=== PATIENT | male | born 1975 | race Caucasian/White ===

== ENCOUNTER → 2017-05-23 | Outpatient (CLI) | payer BC ==
[~2017-05-23] MED LIST: ACET500T68 PO; CYCL10TA29 PO; ESCI10TA8 PO; ESCI20TA38 PO; FLUO20DR3 OT; HYDR-4309 PO; IBUP600T22 PO; LORA10CA3 PO; MOMR ENA; MULT1CAP59 PO; OXCA300O PO; OXCA300T44 PO; TEST100V5 IM; TRAM-420 PO; VENL150C3 PO; VENL75CA4 PO; VENL75CA58 PO
--- NOTE | 2017-05-23 13:08 | RADIOLOGY IMAGING REPORT ---
[place] [facility] [place] NAME: Rohan Arana : 1975 MR: [id number] V: [id number] EXAM DATE: ORDERING PHYSICIAN: TERRELL LÓPEZ TECHNOLOGIST: [place] [facility] [place]: Rohan Arana : 1975 Visit/Account:[id number] Date of Sevice: 05/23/2017 EXAMINATION: CT of the Paranasal Sinuses HISTORY: Chronic sinus symptoms, pain TECHNIQUE: CT was performed through the paranasal sinuses without intravenous contrast administratio n. Coronal and sagittal reformatted images were generated. One of the following dose optimization techniques was utilized in the performance of this exam: autom ated exposure control; adjustment of the mA and/or kV according to patient size; or use of iterative reconstruction technique. Specific details can be referenced in the facility's radiology CT exam ope rational policy. COMPARISON: None. FINDINGS: Clear mastoid air cells and middle ear cavities. Clear paranasal sinuses. No nasal cavity polyp. 3 mm leftward nasal septum deviation. Patent infundibula. Right teddy bullosa. 4 mm lucency within the frontal bone in the anterior wall of the frontal sinus on the right, axial im age 62. Normal temporomandibular joints. The visible extracranial and intracranial structures are normal. IMPRESSION: 1. Clear sinuses. 2. 4 mm osseous lucency within the anterior wall of the right frontal sinus of indeterminate etiology /significance. This may represent the residua of distant sinusitis. An acute erosion related to acute osteomyelitis is felt less likely. Malignant erosion is also felt less likely. Follow-up CT could be utilized as needed to document stability. 3. 3 mm leftward nasal septum deviation. 4. Right teddy bullosa. Report Dictated By: Eric Romeo MD at 05/23/2017 12:54 PM Report E-Signed By: Eric Romeo MD at 05/23/2017 1:04 PM WSN:[email or web address]
== END ==
LOC: CT 00:50
PROVIDERS: ATTEND Otolaryngology
DX: J34.2 Deviated nasal septum (principal); J34.9 Unspecified disorder of nose and nasal sinuses
CPT/HCPCS: 70486

== ENCOUNTER 2017-06-19 02:43 | Day surgery (SDC) | payer BC ==
[~2017-06-19] VITALS: Ht 172.7 cm; Wt 78.9 kg
[2017-06-19] MEDS ORDERED: ROCURONIUM BROM 10 MG/ML 5 ML ONE (02:44)
[2017-06-19] MEDS ORDERED: NORMOSOL R SOLN(*) 1000 ML BAG 1,000 ML IV PRN (08:30)
[2017-06-19] MEDS ORDERED: LIDOCAINE/SOD BICARB 8.4% SYR ID ONE (08:30)
[2017-06-19] MEDS: FAMOTIDINE 20 MG TAB PO ONE ×2 (08:30→10:00)
[2017-06-19] MEDS ORDERED: MIDAZOLAM 2 MG/2 ML VIAL IVP ONE (08:35)
[2017-06-19] MEDS ORDERED: ONDANSETRON 4 MG/2 ML VIAL ONE (09:38)
[2017-06-19] MEDS ORDERED: DEXAMETHASONE SOD 4 MG/ML VIAL ONE (09:38)
[2017-06-19] MEDS ORDERED: METOCLOPRAMIDE 10 MG/2 ML SDV ONE (09:38)
[2017-06-19] MEDS ORDERED: PROPOFOL EMUL(*) 10MG/ML 20 ML 20 ML ONE (09:38)
[2017-06-19] MEDS ORDERED: LIDOCAINE MPF 1% 5 ML VIAL ONE (09:38)
[2017-06-19] MEDS ORDERED: fentaNYL CITR 100 MCG/2 ML AMP ONE ×2 (09:48→11:49)
[2017-06-19 10:03] LABS: PLATELET COUNT, AUTOMATED 294 K/uL (150-450)
[2017-06-19 10:05] VITALS: BP 148/102
[2017-06-19] MEDS ORDERED: ceFAZolin(*) 2GM/D5W 50ML 50 ML IVPB ONE (10:15)
[2017-06-19] MEDS ORDERED: LIDO/EPI 1% MDV 1:100,000 20ML INFIL ONE (10:17)
[2017-06-19] MEDS ORDERED: BACITRACIN OINT 15 GM TUBE TP ONE (10:17)
[2017-06-19] MEDS ORDERED: OXYMETAZOLINE SPRAY 15 ML BTL ONE (10:17)
[2017-06-19] MEDS ORDERED: FAMOTIDINE 20 MG/50 ML PREMIX IVPB ONE (10:20)
[2017-06-19] MEDS ORDERED: SUGAMMADEX SOD 200 MG/2 ML SDV ONE (11:10)
[2017-06-19] MEDS ORDERED: CEFU500T10 PO (12:06)
[2017-06-19] MEDS ORDERED: HYDR-4309 PO (12:06)
[2017-06-19] MEDS ORDERED: APAP/HYDROCODONE 325/5 TAB ONE (12:34)
[2017-06-19 12:44] VITALS: BP 142/90
[2017-06-19 13:16] VITALS: BP 138/97
[2017-06-19 13:18] VITALS: BP 135/84
[2017-06-19 13:22] VITALS: BP 143/99
--- NOTE | 2017-06-20 10:40 | OPERATIVE REPORT 1 ---
EVENT DATE: June 19, 2017 SURGEON: Chance Sunshine MD ANESTHESIOLOGIST: Norman Zendejas MD ANESTHESIA: General endotracheal. PROCEDURE 1. Right teddy bullosa resection. 2. Septoplasty. 3. Submucosal resection of the bilateral inferior turbinates. PREOPERATIVE DIAGNOSES 1. Right teddy bullosa. 2. Nasal septal deviation. 3. Bilateral inferior turbinate hypertrophy. POSTOPERATIVE DIAGNOSES 1. Right teddy bullosa. 2. Nasal septal deviation. 3. Bilateral inferior turbinate hypertrophy. INDICATIONS Please refer to the preoperative note. DESCRIPTION OF PROCEDURE The patient was positively identified in the preoperative area. He was there alone. Risks were again explained, including but not limited to bleeding, infection, nasal septal perforation and those associated with anesthesia. He acknowledged understanding of those risks. He was then brought back to the operative suite, laid supine on the operative table and anesthesia was administered. Once asleep, the patient was positioned, then prepped and draped in usual sterile fashion. I injected approximately 10 mL of 1% lidocaine with epinephrine into the bilateral anterior nasal septal mucosa and along the face of the bilateral inferior turbinates. Both nasal cavities were subsequently packed with cottonoids containing Afrin solution. These were subsequently removed. A nasal endoscopy was performed. This was notable for a generous right middle turbinate and a left inferior septal deviation. I began with the teddy bullosa resection. Approximately 1 mL of 1% lidocaine with epinephrine was infiltrated into the face of the right middle turbinate. A stab incision was then made with a 15 blade. An endoscopic scissors was then used to excise the lateral portion of the teddy. I then proceeded with the septoplasty. A Neymar incision was then made at the left anterior nasal septal mucosa. A subperichondrial flap was elevated. An incision was then made into the anterior septal cartilage approximately 5 mm posterior to the original [place] incision. A contralateral flap was raised. The deviated portion of the patient 's nasal septal cartilage and bone was then removed. The Neymar incision was then reapproximated with interrupted chromic stitch. I then proceeded to address the inferior turbinates. A stab incision was made at the face of the left inferior turbinate. A caudal elevator was utilized to elevate the mucosa off of the underlying bone. A submucosal resection was then performed with the turbinate blade of the microdebrider. The contralateral inferior turbinate was addressed in a similar fashion. Bilateral nasal septal splints were then placed and secured to the columella with a suture. The patient was then turned to anesthesia for emergence. ESTIMATED BLOOD LOSS 25 mL. COMPLICATIONS No complications. MTDD
== END 2017-06-19 12:44 | disposition home or self-care (01) ==
LOC: OR 02:43
PROVIDERS: ATTEND Otolaryngology
DX: J34.9 Unspecified disorder of nose and nasal sinuses (principal); J34.2 Deviated nasal septum; J34.3 Hypertrophy of nasal turbinates; Z85.47 Personal history of malignant neoplasm of testis; E06.9 Thyroiditis, unspecified
CPT/HCPCS: 30140; 30520; 31240; 36415; 85007; 85027; J1100; J2001; J2250; J2405; J2704; J2765; J3010; J3490; J0690

== ENCOUNTER 2017-12-20 02:00 | Outpatient (RCR) | payer BC ==
[~2017-12-20 02:00] MED LIST changes: +CEFU500T10 PO; -HYDR-4309 PO; +HYDR-653 PO
[2017-12-21] MEDS ORDERED: IOPAMIDOL-200 50 ML VIAL IS ONE (12:52)
[2017-12-21] MEDS ORDERED: NS 0.9% 20 ML SDV 40 ML ONE (12:52)
--- NOTE | 2017-12-21 15:21 | RADIOLOGY IMAGING REPORT ---
FACILITY: [facility] PATIENT NAME: Rohan Arana : 1975 MR: [id number] V: [id number] EXAM DATE: ORDERING PHYSICIAN: KENDRA BOSS TECHNOLOGIST: Location: [facility] Patient: Rohan Arana : 1975 Visit/Account:[id number] Date of Sevice: 12/21/2017 MR arthrogram left hip Indication: Pain. History of labral tear/labral repair. Comparison:None available Technique: Multiplanar, multisequence MRI arthrogram is performed of the left hip with dilute intra-a rticular gadolinium. Findings: The marrow pattern of the proximal femora is normal. There is no evidence of proximal femur fracture, stress reaction or avascular necrosis. The marrow pattern of the bony pelvis and sacrum is normal. The left hip joint is well distended with gadolinium. On the smaller [id number]-wq-[id number] images through the left hip, there is evidence of mild chondrosis involving the anterior weightbearing surfaces. There is a recurrent tear of the acetabular labrum along the undersurface. This extends from the superolate ral labrum to the junction with the anterior labrum. No gadolinium filling para labral cyst is identi fied. There is decreased offset at the femoral head and neck junction most pronounced anteriorly on t he oblique axial sequence. This finding has been described with the cam-type of femoral acetabular im pingement. With respect to the pelvic musculature, the gluteal insertions are intact. Common hamstring tendon or igins are normal. Short adductors are normal. IMPRESSION: 1. Large recurrent undersurface tear of the left hip acetabular labrum involving the superolateral la darien and extending to the junction with the anterior labrum. 2. Decreased left femoral head and neck offset most pronounced anteriorly which has been described in the setting of femoral acetabular impingement. Correlate clinically. Report Dictated By: Matt Giraldo at 12/21/2017 3:07 PM Report E-Signed By: Matt Giraldo at 12/21/2017 3:17 PM WSN:[id number]
--- NOTE | 2017-12-21 17:05 | RADIOLOGY IMAGING REPORT ---
FACILITY: [facility] PATIENT NAME: Rohna Arana : 1975 MR: [id number] V: [id number] EXAM DATE: ORDERING PHYSICIAN: KENDRA BOSS TECHNOLOGIST: Location: [facility] Patient: Rohan Arana : 1975 Visit/Account:[id number] Date of Sevice: 12/21/2017 ARTHROGRAM PRE-MRI Provided history: Pain Additional pertinent history: Subsequent MRI for full discussion of results. DESCRIPTION: Procedure and potential risks were explained to the patient and informed consent signed. The patient was placed supine on the fluoroscopy table and skin over the anterior left hip prepped an d draped in sterile fashion. An appropriate site was selected for needle entry and the skin anesthetized with 1 percent lidocaine. This was followed by insertion of a 22-gauge spinal needle under intermittent fluoroscopy to the up per half of the lateral femoral neck. Minimal injection of iodinated contrast confirms intra-articul ar position. 4 mL of bupivacaine was injected per referring physician request for pain control. Thi s was followed by injection of 10 ml of sterile saline contain approximately 1 part per 100 of Multih ance. Needle was then removed and patient transferred to MRI for imaging. There were no complicatio ns. Number of images: Three Fluoroscopy time: 0.3 minutes DAP: 83 microGy-m2 IMPRESSION: Successful and uncomplicated intra-articular injection of the Left hip with sterile saline containing a minute amount of MultiHance. Bupivacaine was also injected . Please see subsequent MRI for full discussion of results. Report Dictated By: Joshua Hoskins MD at 12/21/2017 4:58 PM Report E-Signed By: Joshua Hoskins MD at 12/21/2017 5:01 PM WSN:[id number]
--- NOTE | 2017-12-22 16:31 | RADIOLOGY IMAGING REPORT ---
FACILITY: [facility] - [place] PATIENT NAME: Rohan Arana : 1975 MR: [id number] V: [id number] EXAM DATE: ORDERING PHYSICIAN: KENDRA BOSS TECHNOLOGIST: Location: [facility] - [place] Patient: Rohan Arana : 1975 Visit/Account:[id number] Date of Sevice: 12/22/2017 HIP RIGHT W CONTRAST COMPARISON: None. HISTORY: Bilateral hip pain for 2 years, recurrent labral tears, surgery right hip for a labral repa ir 2 years ago. TECHNIQUE: Post arthrogram MRI right hip CONTRAST: Intravenous contrast was not given. A dilated gadolinium containing arthrogram solution wa s injected into the right hip by another physician earlier today with fluoroscopic guidance, please s ee that report for details. FINDINGS: Suboptimal study because of mild motion artifact on several sequences. The femoral heads are well formed and seated within well formed acetabula. There is no femoral avascu lar necrosis, fracture or significant osteoarthritis. On small [id number]-[id number] images of the right hip there is no significant chondral loss noted. There is mild fraying of the lateral labrum near the 12: 00 position, for example series 8 images 12 and 13. Posterior to this on the coronal images, for exam ple series 8 image 15 there is a thin contrast imbibing cleft in the posterior labrum which could rep resent a normal variant sulcus or a tear. There is subtle irregularity of the anterior superior labru m (anterior 1:00 position) imbibing gadolinium, example series 7 image 14 consistent with a small tea r. The lower lumbar spine, sacroiliac joints and pubic symphysis are unremarkable. Normal marrow signal and alignment. No bone marrow edema or fracture. Iatrogenic right hip effusion. There is no left hip effusion. There is no right or left iliopsoas or trochanteric bursitis. There is no muscle atrophy or edema. The visualized tendinous origins and tendinous insertions of the gluteal and iliopsoas muscles, as we ll as the origins of the hamstrings, quadriceps and adductor muscle groups are intact. No intrapelvic visceral abnormalities are seen. IMPRESSION: 1. Suboptimal study because of mild motion artifact on several sequences. 2. Mild fraying of the lateral labrum of the right hip near the 12:00 position. Additional irregular ity of the anterior superior labrum consistent with a superficial tear. 3. Thin cleft of contrast in the posterior labrum may represent a normal variant sulcus although a t ear is not excluded. Report Dictated By: Reyes Alexandre at 12/22/2017 4:09 PM Report E-Signed By: Reyes Alexandre at 12/22/2017 4:26 PM WSN:[id number]
--- NOTE | 2017-12-22 16:48 | RADIOLOGY IMAGING REPORT ---
FACILITY: [facility] - [place] PATIENT NAME: Rohan Arana : 1975 MR: [id number] V: [id number] EXAM DATE: ORDERING PHYSICIAN: KENDRA BOSS TECHNOLOGIST: Location: [facility] Patient: Rohan Arana : 1975 Visit/Account:[id number] Date of Sevice: 12/22/2017 ARTHROGRAM PRE-MRI// PAIN INJECTION HISTORY: Patient needs hip injection for pain. This will be followed with a injection of gadolinium for an MRI. Technique: The skin over the right hip was prepped draped and anesthetized 1% lidocaine. Utilizing fluoroscopy the right hip was entered with a 22-gauge needle. Initial injection demonstrated smudging without de finite joint flow. The needle was readjusted and a second injection confirmed an image joint positio n. Thereafter 2 mL of 0.25% predicted lidocaine and 3 mL of lidocaine were successfully injected wit hin the joint space. This was followed with approximately 10 mL of a gadolinium/saline solution which was 0.1 mL of gadoli nium/20 mL of saline. IMPRESSION: 1. Successful pain hip injection. 2. Successful pre-MRI hip injection with gadolinium 4 fluoroscopic time of 1.1 minutes. AK 13.2mGy Report Dictated By: Orlando Gordon MD at 12/22/2017 4:37 PM Report E-Signed By: Orlando Gordon MD at 12/22/2017 4:44 PM DREAN:[email or web address]
== END 2017-12-22 18:00 | disposition home or self-care (01) ==
LOC: MRI 02:00 → EDSTATUS 12-21 16:03 → MRI 12-22 18:00
PROVIDERS: ATTEND Orthopaedic Surgery
DX: S73.192A Other sprain of left hip, initial encounter (principal)
CPT/HCPCS: 73722; 77002; J7050; Q9966

== ENCOUNTER → 2018-03-05 | Outpatient (CLI) | payer BC ==
[2018-03-05 10:29] LABS: PLATELET COUNT, AUTOMATED 297 K/uL (150-450)
--- NOTE | 2018-03-05 10:38 | EKG ---
FACILITY: [facility] - [place] PATIENT NAME: RAJI NORTON : [id number] MR: [id number] V: [id number] EXAM DATE: ORDERING PHYSICIAN: RUCHI RESENDEZ TECHNOLOGIST: KATY Wills Reason : Blood Pressure : / mmHG Vent. Rate : 050 BPM Atrial Rate : 050 BPM P-R Int : 190 ms QRS Dur : 098 ms QT Int : 462 ms P-R-T Axes : 079 -31 083 degrees QTc Int : 421 ms Sinus bradycardia with sinus arrhythmia Left axis deviation Abnormal ECG No previous ECGs available Confirmed by RUCHI RESENDEZ ([id number]) on 03/05/2018 8:58:46 PM Referred By: TARIQ Confirmed By:RUCHI RESENDEZ
== END ==
LOC: LAB 10:14
PROVIDERS: ATTEND Nurse Practitioner Family
DX: Z01.818 Encounter for other preprocedural examination (principal); R94.31 Abnormal electrocardiogram [ECG] [EKG]
CPT/HCPCS: 36415; 81001; 82310; 82374; 82435; 82565; 82947; 84132; 84295; 84520; 85025; 93005

== ENCOUNTER → 2018-07-02 | Outpatient (REF) | payer BC | LOC: ZZSENDIN 10:21 | PROVIDERS: ATTEND Family Medicine | DX: F32.5 Major depressive disorder, single episode, in full remission (principal) | CPT/HCPCS: 81001 ==